=== PATIENT | female | born 1945 | race Caucasian/White ===

== ENCOUNTER 2017-01-12 07:00 | Inpatient (IN) | payer MEDICARE ==
[~2017-01-12] VITALS: Ht 165.1 cm; Wt 101.7 kg
[~2017-01-12 07:00] MED LIST: CALC500T42 PO; CO Q100C9 PO; GLUC250C5 PO; MELA1TAB PO; OMEG100037 PO; RED600TA PO; TAB-TAB PO; VITA200017 PO
[2017-01-30] MEDS ORDERED: ESTR42.5V VAGINAL (10:50)
[2017-01-30] MEDS ORDERED: FIBE625T PO (10:50)
[2017-01-30] MEDS ORDERED: LEVO50TA4 PO (10:50)
[2017-01-30] MEDS ORDERED: ESTR1TAB78 VAGINAL (10:50)
[2017-02-10 07:59] VITALS: BP 149/79; PULSE 57; RESP 20; TEMP 98.4; O2SAT 98
[2017-02-10] MEDS ORDERED: BUPIVACAINE LIPOSO PF 1.3% INJ 20 ML in SODIUM CHLORIDE 0.9% INJ 80 ML P-ARTICULR SCH (08:00)
[2017-02-10] MEDS ORDERED: CHLORHEXIDINE GLUCONATE 4% SOLN 120 ML BTL TOPICAL SCH (08:00)
[2017-02-10] MEDS ORDERED: SODIUM CHLORID 0.9% 500 ML IV PRN (08:00)
[2017-02-10] MEDS ORDERED: POVIDONE IODINE 5% (ANTISEPSIS KIT) 4 APPLICATIONS EACH NARE PRN (08:00)
[2017-02-10] MEDS ORDERED: INSULIN HUMAN REGULAR 1,000 UNITS/10 ML VIAL SQ PRN (08:00)
[2017-02-10] MEDS ORDERED: CHLORHEXIDINE GLUCONATE 2 % 1 PACK (2 CLOTHS) TOPICAL PRN (08:00)
[2017-02-10] MEDS ORDERED: METOPROLOL TARTRATE 25 MG TAB PO PRN (08:00)
[2017-02-10] MEDS ORDERED: SODIUM CHLORIDE 0.9% IV SCH ×2 (08:00→11:00)
[2017-02-10] MEDS ORDERED: TRANEXAMIC ACID IV SCH ×2 (08:00→11:00)
[2017-02-10] MEDS ORDERED: ceFAZolin 2 GM PREMIX 50 ML IV SCH (08:00)
[2017-02-10] MEDS ORDERED: LACTATED RINGER'S 1000 ML IV PRN (08:00)
[2017-02-10] MEDS ORDERED: GENTAMICIN SULFATE 80 MG/2 ML VIAL ONE (09:23)
[2017-02-10] MEDS ORDERED: MIDAZOLAM HCL 2 MG/2 ML VIAL ONE ×2 (10:08→11:22)
[2017-02-10] MEDS ORDERED: ACETAMINOPHEN 1000 MG/100 ML VIAL IV ONE (10:08)
[2017-02-10] MEDS ORDERED: fentaNYL CITRATE 250 MCG/5 ML AMP ONE (10:08)
[2017-02-10] MEDS ORDERED: DEXAMETHASONE SOD PHOS 4 MG/ML VIAL ONE (10:08)
[2017-02-10] MEDS ORDERED: FAMOTIDINE 20 MG/2 ML VIAL ONE (10:15)
[2017-02-10] MEDS ORDERED: MORPHINE SULFATE 4 MG/ML INJ IV PUSH PRN (10:45)
[2017-02-10] MEDS ORDERED: ZOLPIDEM TARTRATE 5 MG TAB PO PRN (10:45)
[2017-02-10] MEDS ORDERED: Post-op Orders (for Pharmacy) MISC XX ONE (10:45)
[2017-02-10] MEDS ORDERED: TRANEXAMIC ACID INJ 0 MG in SODIUM CHLORIDE 0.9% INJ 100 ML IV SCH (10:45)
[2017-02-10] MEDS ORDERED: ACETAMINOPHEN/HYDROcodone 325 MG/7.5 MG TAB PO PRN ×2 (10:45)
[2017-02-10] MEDS ORDERED: SODIUM CHLORIDE 0.9% FLUSH 5 ML FLUSH IVF PRN (10:45)
[2017-02-10] MEDS ORDERED: ePHEDrine/NS 25 MG/5 ML SYR IV ONE (12:00)
[2017-02-10] MEDS ORDERED: ONDANSETRON HCL 4 MG/2 ML VIAL IV PUSH ONE (12:00)
[2017-02-10] MEDS ORDERED: LACTATED RINGER'S 1000 ML INJ 1,000 ML IV ONE (12:00)
[2017-02-10] MEDS ORDERED: PROPOFOL 200 MG/20 ML AMP IV ONE (12:00)
--- NOTE | 2017-02-10 12:53 | PD.CONS ---
[facility] Requested By Ton Glover MD. Reason for Consult Medical Management. Primary Care Physician Christiano Garza Diagnoses: History of Present Illness This is a pleasant 71 y/o Female who has OA, Hyperlipidemia, Sleep disorder, Vitamin D Deficiency, rectal prolapse who was brought in for Right Total Hip arthroplasty. seen in PACU stable discussed with nurse Miss Lloyd no complaint, she has right knee Hemovac in place. no nausea, vomit or diarrhea no chest pain of shortness of breath. Past Family Social History Allergies: Coded Allergies: No Known Allergies (Unverified , 02/10/17) Past Medical History Hyperlipidemia. Hypothyroidism History of rectal prolapse status post rectopexy. Past Surgical History Rectopexy Left total knee replacement Tonsillectomy Reported Medications Reported Meds & Active Scripts Active Reported Levothyroxine (Levothyroxine Sodium) 50 Mcg Tab 50 Mcg PO DAILY Active Ordered Medications Current Medications Medications (Trade) Dose Ordered Sig/Eder Route Start Time Stop Time Status Last Admin (NS 500 ml Inj) 500 ml @ 30 mls/hr [id number] PRN IV 02/10/17 08:00 02/13/17 07:59 Chlorhexidine Gluconate 1 applic 1 applic ONCE TOPICAL 02/10/17 08:00 02/13/17 07:59 Tranexamic Acid 896 mg/Sodium Chloride 108.96 ml @ 200 mls/ hr ONCE IV 02/10/17 08:00 02/11/17 07:59 02/10/17 10:40 Tranexamic Acid 896 mg/Sodium Chloride 108.96 ml @ 200 mls/ hr ONCE IV 02/10/17 11:00 02/11/17 10:59 Bupivacaine Liposome 20 ml/ Sodium Chloride 100 ml @ 200 mls/hr ONCE P-ARTICULR 02/10/17 08:00 02/11/17 07:59 02/10/17 11:26 (Lr 1000 ml Inj) 1,000 ml @ 80 mls/hr [id number] IV 02/10/17 10:32 (NS Flush) 2 ml UNSCH PRN IVF 02/10/17 10:45 IV Flush 2 ml 2 ml BID IVF 02/10/17 21:00 (Ancef Inj/NS Inj) 100 ml @ 200 mls/hr Q6H IV 02/10/17 10:45 5/2/17 23:14 UNV 02/10/17 11:13 (Post-op Orders (for Pharmacy)) STAT ONCE XX 02/10/17 10:45 02/10/17 10:46 UNV (Morphine Inj) 4 mg Q3H PRN IV PUSH 02/10/17 10:45 ([place] 7.5-325 Mg) 1 tab Q4H PRN PO 02/10/17 10:45 ([place] 7.5-325 Mg) 2 tab Q4H PRN PO 02/10/17 10:45 (Toradol Inj) 15 mg Q6H IVP 02/10/17 10:45 02/12/17 04:46 UNV (Zofran Inj) 4 mg Q6H PRN IVP 02/10/17 10:45 (Colace) 100 mg BID PO 02/11/17 21:00 (Ambien) 5 mg HS PRN PO 02/10/17 10:45 (Milk Of Magnesia Liq) 30 ml DAILY PRN PO 02/10/17 10:45 (Ecotrin Ec) 81 mg BID PO 02/10/17 21:00 (Synthroid) 50 mcg DAILY@06 PO 02/11/17 06:00 Family History Mother with diabetes, resected lung cancer, and coronary artery disease Father and Brother with DM II. Social History Smoked less than 1 pack per day for 15 years, quitting in 1983. drinks rarely. Denies illicit drugs. Physical Exam Vital Signs Vital Signs Date Time Temp Pulse Resp B/P Pulse Ox O2 Delivery O2 Flow Rate FiO2 02/10/17 07:59 98.4 57 20 149/79 98 Physical Exam GENERAL: Obesity, well-developed patient. Alert and oriented 3. SKIN: Warm and dry. HEAD: Normocephalic. EYES: No scleral icterus. No injection or drainage. NECK: Supple, trachea midline. No JVD or lymphadenopathy. CARDIOVASCULAR: Regular rate and rhythm without murmurs, gallops, or rubs. RESPIRATORY: Breath sounds equal bilaterally. No accessory muscle use. GASTROINTESTINAL: Abdomen soft, non-tender, nondistended. MUSCULOSKELETAL: No cyanosis, or edema. Postoperative Right knee dressed. Distal perfusion intact. Sensation intact. Hemovac in place BACK: Nontender without obvious deformity. No CVA tenderness. Laboratory Laboratory Tests Test 02/10/17 07:55 Blood Type B POSITIVE Antibody Screen NEGATIVE Assessment and Plan Assessment and Plan 1. Severe OA status post Right total knee arthroplasty, Postsurgical management as per surgical team PT and manager energy for discharge. 2. Hyperlipidemia not taking medicines at this time, 3. Hypothyroidism to continue Hormonal replacement 4. obesity strongly recommended diet and exercise. Prophylaxis as per Surgical team. Code Status Full code Discussed Condition With Patient and nurse. Gallo Vidal MD February 10, 2017 12:53 07:55 Blood Type B POSITIVE Antibody Screen NEGATIVE Assessment and Plan Assessment and Plan 1. Severe OA status post Right total knee arthroplasty, Postsurgical management as per surgical team 2. Hyperlipidemia. 3. Hypothyroidism to continue Hormonal replacement Prophylaxis as per Surgical team. Gallo Vidal MD February 10, 2017 12:53
[2017-02-10] MEDS ORDERED: *morphine SULFATE 8 MG/ML PERIprocedure ONLY ONE ×2 (13:55→14:08)
[2017-02-10] MEDS: LACTATED RINGER'S 1000 ML INJ 1,000 ML IV SCH ×2 (13:58→23:02)
[2017-02-10] MEDS ORDERED: DO NOT ADM ANY ANTICOAGULANT DRUGS PRN (14:00)
[2017-02-10] MEDS: KETOROLAC TROMETHAMINE 30 MG/ML (IVP) VIAL IVP SCH ×2 (14:22→20:05)
--- NOTE | 2017-02-10 14:37 | RADRPT ---
EXAM DATE/TIME: 02/10/2017 13:45 [place] COMPARISON: No previous studies available for comparison. INDICATIONS : Post op right total knee. MEDICAL HISTORY : None. SURGICAL HISTORY : None. ENCOUNTER: Initial ACUITY: 1 day PAIN SCORE: Non-responsive. LOCATION: Right knee. FINDINGS: Right total knee arthroplasty is present. The hardware is intact. Alignment is anatomic. Surgical benson ins are present. CONCLUSION: Satisfactory appearance post right TKA Lázaro Butt MD on February 10, 2017 at 14:34 Board Certified Radiologist. This report was verified electronically.
[2017-02-10 15:15] VITALS: BP 120/67; PULSE 50; RESP 18; TEMP 96.8; O2SAT 97
[2017-02-10] MEDS: ONDANSETRON HCL 4 MG/2 ML VIAL IVP PRN ×2 (16:49→22:58)
--- NOTE | 2017-02-10 16:54 | MP ---
cc: Augustus SANCHEZ. DATE OF SURGERY 02/10/17 PREOPERATIVE DIAGNOSIS Primary osteoarthritis right knee POSTOPERATIVE DIAGNOSIS Primary osteoarthritis right knee OPERATION PERFORMED Right total knee arthroplasty with [place] Triathlon prosthesis (uncemented). SURGEON Buzz Sanchez MD, JOB COST ESTIMATOR Deja Cisneros, RICK ANESTHESIA Spinal with supplemental adductor canal block and local. INDICATIONS AND FINDINGS This 71-year-old woman has at least a 10-year history of right knee pain that has progressively worsened over time. She has had increasing pain with disability on activities of daily living. Ambulation tolerance is one to two blocks. She is able to swim, but has difficulty ascending and descending stairs. She has pain when standing from a seated position. She has not responded recently to analgesics, nonsteroidal anti-inflammatory agents, exercise programs, ambulatory aids and activity modification. Physical findings showed some severe crepitation in the patellofemoral joint with tenderness and some osteophytes. Radiographic findings show significant arthritis in the right knee, particularly in the patellofemoral joint, but also narrowing medially and laterally with significant sized osteophytes. Operative findings showed significant osteoarthritis, particularly in the patellofemoral joint, but also in the medial and lateral compartments. The prosthesis used was a [place] Triathlon prosthesis with the femur being a size five right cruciate-retaining uncemented, the tibia being a size five Tritanium baseplate with a 9 mm cruciate-retaining X3 polyethylene spacer. The patella was a 32 mm asymmetric tritanium backed patella. The range of motion at the conclusion of the procedure was 0 degrees extension to 135 degrees of flexion by gravity and 140 degrees with some pressure. This was blocked by soft tissues in the popliteal area. PROCEDURE IN DETAIL The patient was brought to the clean-air operating suite and a spinal anesthetic was administered. She then had an adductor canal block carried out. She was placed in a supine position on the operating table with a small bolster under the right hip. A pneumatic tourniquet was applied to the right thigh. The limb was then prepped with alcohol, Hibiclens and Chloraprep and draped in the usual manner with the knee draped free. Prophylactic antibiotics were given on the form of Ancef. Tranexamic acid was given to assist in hemostasis. After an appropriate time-out procedure, the incision site was anesthetized with Exparel. A longitudinal anterior incision was then made from three fingerbreadths above the superior medial pole of patella down to the tibial tubercle. The incision was deepened through the subcutaneous tissues to the retinacular structures which were exposed medially and laterally. A medial retinacular incision was made from the superomedial pole of patella down to the tibial tubercle and up into the quadriceps tendon splitting it longitudinally in the medial one-third. The patella was reflected. Medial and lateral dissection was carried out. The infrapatellar fat pad was debulked. The posterior surface of the patella was excised with the oscillating saw taking care to prevent injury to tendinous structures. A patellar protector was applied. A fenestration was made in the distal end of the femur and proximal end of the tibia for intermedullary referencing guides. The distal femoral cutting guide and jig was assembled for 5 degree 8-mm cut and stabilized with pins. The jig was removed. The distal femoral cut was completed with the oscillating saw. The sizing guide was then positioned in place and stabilized with pins. The size was determined to be size five. When this was removed, a 4:1 cutting block was positioned in place and stabilized with pins. Anterior and posterior cuts were made followed by posterior and anterior chamfer cuts. Osteophytes were trimmed. Attention was then directed to the tibia. The intramedullary referencing guide for the tibia was inserted and positioned appropriately for rotation. This was stabilized with a pin. The depth of the cut was verified with a stylus off lateral side. The cutting guide was stabilized with pins. The jig was removed. The depth of the cut was adjusted according to the spacer block. The proximal tibia was then exposed. The cut was made with the oscillating saw taking care to prevent injury to neurovascular and ligamentous structures. The tibial base plate trial was used to identify the size which was a size five. A 9 mm trial spacer was inserted into the tibial baseplate trial. These were inserted into the joint after local anesthesia had been administered in the popliteal area with Exparel. The femoral component was impacted into place and was also a size five. When this was seated appropriately, the tibial baseplate was stabilized with pins. The alignment was checked and was found to be excellent. The patella drill guide was positioned in place and patella drill holes made. A 32 mm trial patella was positioned in place. The knee was taken through a range of motion which was 0 degrees extension to 135 degrees by gravity and 140 degrees limited by the soft tissues with some pressure. The patella trial was removed. The femoral drill holes were made. The femoral trial was removed. The tibial spacer was removed. The tibial punch was impacted through the tibia after placement of bone plugs in the tibia and femur. The tibial baseplate trial was removed. The tip of drill guide was positioned and drill holes made. This was likewise removed. The cut ends of bone were cleaned with pulse lavage. The tibial baseplate which was a size five tritanium was impacted into place and seated appropriately. The 9-mm spacer was inserted and impacted in place. The femoral component was then impacted into place in the same manner after cleaning the bone with pulse lavage. The patella was impacted into place and seated with the patella vice. The knee was taken through a range of motion again which was comparable to that with the trial prosthesis. The remainder of the Exparel was injected throughout the knee. Drains were brought out the superolateral aspect of the suprapatellar pouch. Wound closure then commenced using 0 Vicryl interrupted [id number] sutures for the retinacular structures, 2-0 Vicryl interrupted simple sutures with buried knots for the subcutaneous tissues and 4-0 Monocryl continuous subcuticular closure for the skin. The wound was dressed with Steri-Strips followed by dry dressing, sterile Sof-Rol, cooling pad, further sterile Sof-Rol and Kamron bandage from the base of the toe to mid thigh. The patient was transferred from the operating room to the recovery room in satisfactory condition having tolerated the procedure well. Counts were correct. Specimens none. Estimated blood loss 200 mm. MD HOLLIE Virk/ /1:20 PM /4:34 PM
[2017-02-10 18:11] VITALS: O2SAT 97
[2017-02-10] MEDS: SODIUM CHLORIDE 0.9% FLUSH 5 ML FLUSH IVF SCH (20:06)
[2017-02-10 20:30] VITALS: BP 128/59; PULSE 65; RESP 17; TEMP 96.9; O2SAT 97
[2017-02-10] MEDS ORDERED: ASPIRIN EC 81 MG TABEC PO SCH (21:00)
[2017-02-10] MEDS ORDERED: oxyCODONE/ACETAMINOPHEN 7.5 MG/325 MG TAB PO PRN (21:15)
[2017-02-10] MEDS: oxyCODONE/ACETAMINOPHEN 7.5 MG/325 MG TAB PO PRN (22:58)
[2017-02-11] VITALS (10 sets, daily range): BP systolic 84–124; BP diastolic 48–56; PULSE 54–66; RESP 16–18; TEMP 96.3–98.2; O2SAT 95–97
[2017-02-11] MEDS: KETOROLAC TROMETHAMINE 30 MG/ML (IVP) VIAL IVP SCH ×4 (03:55→20:08)
[2017-02-11] MEDS: LACTATED RINGER'S 1000 ML INJ 1,000 ML IV SCH (03:56)
[2017-02-11] MEDS: oxyCODONE/ACETAMINOPHEN 7.5 MG/325 MG TAB PO PRN ×4 (03:56→17:56)
[2017-02-11] MEDS: ONDANSETRON HCL 4 MG/2 ML VIAL IVP PRN (04:59)
[2017-02-11] MEDS: LEVOTHYROXINE SODIUM 50 MCG TAB PO SCH (04:59)
[2017-02-11 07:09] LABS: HEMATOCRIT 32.4 % (35.0-46.0); REVIEW FLAG FINAL
--- NOTE | 2017-02-11 07:31 | PD.ORT.PN ---
Subjective Post Op Day #: 1 Subjective Remarks She is doing well. She had nausea from morphine. She did well with walking. Range of Motion -15 to 90 degrees. Distance Walked 20 feet. Objective Vitals Vital Signs Date Time Temp Pulse Resp B/P Pulse Ox O2 Delivery O2 Flow Rate FiO2 02/11/17 04:30 96.3 61 17 96/54 96 02/11/17 00:30 97.0 60 17 106/55 96 02/10/17 20:30 96.9 65 17 128/59 97 02/10/17 18:11 97 Nasal Cannula 2.00 02/10/17 15:15 96.8 50 18 120/67 97 02/10/17 14:45 97.7 56 16 139/69 98 Nasal Cannula 2 02/10/17 14:30 48 20 146/68 96 Nasal Cannula 2 02/10/17 14:15 54 20 130/62 98 Nasal Cannula 2 02/10/17 14:00 52 16 138/65 96 Nasal Cannula 2 02/10/17 13:45 67 16 132/65 98 Nasal Cannula 2 02/10/17 13:41 97.7 70 16 129/72 93 Nasal Cannula 3 02/10/17 07:59 98.4 57 20 149/79 98 I/O 02/10/17 02/10/17 02/10/17 02/11/17 02/11/17 02/11/17 07:00 15:00 23:00 07:00 15:00 23:00 Intake Total 1574 ml 240 ml 120 ml Output Total 310 ml 170 ml 130 ml Balance 1264 ml 70 ml -10 ml Intake Oral 50 ml 240 ml 120 ml IV Total 224 ml Other 1300 ml Output Urine Total 0 ml Drainage Total 60 ml 170 ml 130 ml Estimated Blood Loss 250 ml # Voids 0 2 2 # Bowel Movements 0 0 Result Diagram: 02/11/17 0635 Imaging Knee x-ray looks good. Last 24 hours Impressions Knee X-Ray 02/10/17 1032 Signed Impressions: Service Date/Time: Friday, February 10, 2017 13:45 - CONCLUSION: Satisfactory appearance post right TKA Lázaro Butt MD Objective Remarks She is resting comfortably, supine in bed in the [facility]. The neurovascular status is intact. The dressing is dry and intact. Assessment & Plan Ortho Post Op Day #: 1 Problem List: (1) Status post total right knee replacement Plan: Continue postop care and PT. Assessment and Plan Condition: Good. Orthopaedically stable. DVT prophylaxis: TEDs, sequentials, ASA. Discharge plans: SNF for rehab. Has appointment. Shona Camilo MD (Charles) February 11, 2017 07:30
[2017-02-11 07:39] LABS: BICARBONATE 29.8 MEQ/L (21.0-32.0); MAGNESIUM 1.7 MG/DL (1.5-2.5); POTASSIUM 4.6 MEQ/L (3.5-5.1)
--- NOTE | 2017-02-11 08:17 | HHI.FF ---
Face to Face Verification Diagnosis: (1) Status post total right knee replacement Physical Therapy Gait training Knee: Total knee, Protocol: Right, Gait training, Full weight bearing Right LE Weight Bearing: WB as tolerated Right LE Range of Motion: Active ROM (AROM, AAROM, PROM, PRE. ROM goal is 0 to 130 degrees. The ROM in the OR was 0 to 140 degrees.) Nursing Nursing: Dressing changes Dressing Changes: Daily dressing change, Coverderm/Primapore Additional Instructions Remove steristrips on postop day 14. I have seen patient Rose Marie Bryant on 02/11/17. My clinical findings support the need for the requested home health care services because: Ltd mobility - disease progression Limited ability to care for self High risk of falls I certify that my clinical findings support that this patient is homebound because: Post-op weakness Unsteady gait/balance Unsafe to leave home unassisted Shona Camilo MD (Charles) February 11, 2017 08:17
[2017-02-11] MEDS ORDERED: ASPI81TA11 PO (08:35)
[2017-02-11] MEDS ORDERED: OXYC1TAB35 PO (08:35)
[2017-02-11] MEDS: SODIUM CHLORIDE 0.9% FLUSH 5 ML FLUSH IVF SCH ×2 (09:00→20:08)
[2017-02-11] MEDS: ASPIRIN EC 81 MG TABEC PO SCH ×2 (13:05→20:08)
--- NOTE | 2017-02-11 16:31 | HHI.PR ---
Subjective Remarks This is a pleasant 71 y/o Female who has OA, Hyperlipidemia, Sleep disorder, Vitamin D Deficiency, rectal prolapse who was brought in for Right Total Hip arthroplasty. seen in PACU stable discussed with nurse Miss Lloyd no complaint, she has right knee Hemovac in place. no nausea, vomit or diarrhea no chest pain of shortness of breath. 02/11: Seen in her bedroom, reviewed her laboratory for today, vital sings stable , was given IV fluids by Orthopedic surgery will switch to Normal Saline, she was nauseated yesterday night probable related to Morphine, today improved on by mouth pain medicine. already working with physical therapy. Objective Vital Signs Date Time Temp Pulse Resp B/P Pulse Ox O2 Delivery O2 Flow Rate FiO2 02/11/17 12:00 98.1 66 18 109/50 97 02/11/17 11:07 96 21 02/11/17 10:44 16 02/11/17 09:41 104/53 02/11/17 09:20 95/52 02/11/17 08:55 85/48 02/11/17 08:00 96.6 54 18 84/50 96 02/11/17 04:30 96.3 61 17 96/54 96 02/11/17 00:30 97.0 60 17 106/55 96 02/10/17 20:30 96.9 65 17 128/59 97 02/10/17 18:11 97 Nasal Cannula 2.00 I/O 02/10/17 02/10/17 02/10/17 02/11/17 02/11/17 02/11/17 07:00 15:00 23:00 07:00 15:00 23:00 Intake Total 1574 ml 240 ml 120 ml Output Total 310 ml 170 ml 130 ml Balance 1264 ml 70 ml -10 ml Intake Oral 50 ml 240 ml 120 ml IV Total 224 ml Other 1300 ml Output Urine Total 0 ml Drainage Total 60 ml 170 ml 130 ml Estimated Blood Loss 250 ml # Voids 0 2 2 # Bowel Movements 0 0 Result Diagram: 02/11/17 0635 02/11/17 0635 Imaging Last Impressions Knee X-Ray 02/10/17 1032 Signed Impressions: Service Date/Time: Friday, February 10, 2017 13:45 - CONCLUSION: Satisfactory appearance post right TKA Lázaro Butt MD Procedures Right Total knee arthroplasty Other Results Laboratory Tests Test 02/10/17 02/11/17 07:55 06:35 Blood Type B POSITIVE Antibody Screen NEGATIVE Hemoglobin 10.7 GM/DL Hematocrit 32.4 % Sodium Level 138 MEQ/L Potassium Level 4.6 MEQ/L Chloride Level 104 MEQ/L Carbon Dioxide Level 29.8 MEQ/L Anion Gap 4 MEQ/L Blood Urea Nitrogen 17 MG/DL Creatinine 0.74 MG/DL Estimat Glomerular Filtration 78 ML/MIN Rate Random Glucose 120 MG/DL Calcium Level 9.2 MG/DL Phosphorus Level 2.9 MG/DL Magnesium Level 1.7 MG/DL Objective Remarks GENERAL: Obesity, well-developed patient. Alert and oriented 3. SKIN: Warm and dry. HEAD: Normocephalic. EYES: No scleral icterus. No injection or drainage. NECK: Supple, trachea midline. No JVD or lymphadenopathy. CARDIOVASCULAR: Regular rate and rhythm without murmurs, gallops, or rubs. RESPIRATORY: Breath sounds equal bilaterally. No accessory muscle use. GASTROINTESTINAL: Abdomen soft, non-tender, nondistended. MUSCULOSKELETAL: No cyanosis, or edema. Postoperative Right knee dressed. Distal perfusion intact. Sensation intact. Hemovac in place BACK: Nontender without obvious deformity. No CVA tenderness. Medications and IVs Current Medications Medications (Trade) Dose Ordered Sig/Eder Route Start Time Stop Time Status Last Admin Chlorhexidine Gluconate 1 applic 1 applic ONCE TOPICAL 02/10/17 08:00 02/13/17 07:59 (Lr 1000 ml Inj) 1,000 ml @ 80 mls/hr [id number] IV 02/10/17 10:32 02/11/17 03:56 (NS Flush) 2 ml UNSCH PRN IVF 02/10/17 10:45 (NS Flush) 2 ml BID IVF 02/10/17 21:00 (Morphine Inj) 4 mg Q3H PRN IV PUSH 02/10/17 10:45 (Toradol Inj) 15 mg Q6H IVP 02/10/17 14:00 02/12/17 08:01 02/11/17 13:41 (Zofran Inj) 4 mg Q6H PRN IVP 02/10/17 10:45 02/11/17 04:59 (Colace) 100 mg BID PO 02/11/17 21:00 (Ambien) 5 mg HS PRN PO 02/10/17 10:45 (Milk Of Magnesia Liq) 30 ml DAILY PRN PO 02/10/17 10:45 (Synthroid) 50 mcg DAILY@06 PO 02/11/17 06:00 02/11/17 04:59 (Percocet 7.5-325 Mg) 1 tab Q4H PRN PO 02/10/17 21:15 02/11/17 13:41 (Percocet 7.5-325 Mg) 2 tab Q4H PRN PO 02/10/17 21:15 (Ecotrin Ec) 81 mg BID PO 02/11/17 13:00 02/11/17 13:05 A/P Assessment and Plan 1. Severe OA status post Right total knee arthroplasty, Postsurgical management as per surgical team PT and radio station manager for discharge. 2. Hyperlipidemia not taking medicines at this time, 3. Hypothyroidism to continue Hormonal replacement 4. obesity strongly recommended diet and exercise. Prophylaxis as per Surgical team. Code Status Full code Discussed Condition With patient and nurse Miss Rizvi. Gallo Vidal MD February 11, 2017 16:31
[2017-02-11] MEDS: SODIUM CHLOR 0.9% 1000 ML INJ 1,000 ML IV SCH (17:52)
[2017-02-11] MEDS: DOCUSATE SODIUM 100 MG CAP PO SCH (20:08)
[2017-02-11] MEDS: MAGNESIUM HYDROXIDE SUSP 30 ML CUP PO PRN (20:10)
[2017-02-12 00:31] VITALS: BP 120/58; PULSE 57; RESP 17; TEMP 97.2; O2SAT 95
[2017-02-12] MEDS: KETOROLAC TROMETHAMINE 30 MG/ML (IVP) VIAL IVP SCH ×2 (02:00→08:00)
[2017-02-12] MEDS: LEVOTHYROXINE SODIUM 50 MCG TAB PO SCH (04:06)
[2017-02-12] MEDS: ONDANSETRON HCL 4 MG/2 ML VIAL IVP PRN (04:06)
[2017-02-12] MEDS: oxyCODONE/ACETAMINOPHEN 7.5 MG/325 MG TAB PO PRN ×4 (04:07→18:00)
[2017-02-12] MEDS: SODIUM CHLOR 0.9% 1000 ML INJ 1,000 ML IV SCH ×2 (04:19→16:50)
[2017-02-12 06:47] LABS: HEMATOCRIT 27.6 % (35.0-46.0); REVIEW FLAG FINAL
--- NOTE | 2017-02-12 06:50 | PD.ORT.PN ---
Subjective Post Op Day #: 2 Subjective Remarks She is doing well. She had nausea last night. She did well with walking and PT. Range of Motion 0 to 92 degrees. Distance Walked 150 feet with nurses. 20 feet to bathroom, then 55 feet with PT, limited by fatigue. Objective Vitals Vital Signs Date Time Temp Pulse Resp B/P Pulse Ox O2 Delivery O2 Flow Rate FiO2 02/12/17 00:31 97.2 57 17 120/58 95 02/11/17 20:10 97.1 60 16 124/56 96 02/11/17 16:00 98.2 60 18 105/49 95 02/11/17 12:00 98.1 66 18 109/50 97 02/11/17 11:07 96 21 02/11/17 10:44 16 02/11/17 09:41 104/53 02/11/17 09:20 95/52 02/11/17 08:55 85/48 02/11/17 08:00 96.6 54 18 84/50 96 I/O 02/11/17 02/11/17 02/11/17 02/12/17 02/12/17 02/12/17 07:00 15:00 23:00 07:00 15:00 23:00 Intake Total 120 ml 840 ml 480 ml Output Total 130 ml 110 ml 100 ml 50 ml Balance -10 ml -110 ml 740 ml 430 ml Intake Oral 120 ml 840 ml 480 ml Drainage Total 130 ml 110 ml 100 ml 50 ml # Voids 2 4 3 # Bowel Movements 0 0 0 Result Diagram: 02/11/17 0635 02/11/17 0635 Imaging Knee x-ray looks good. Last 24 hours Impressions Knee X-Ray 02/10/17 1032 Signed Impressions: Service Date/Time: Friday, February 10, 2017 13:45 - CONCLUSION: Satisfactory appearance post right TKA Lázaro Butt MD Objective Remarks She is resting comfortably, supine in bed in the [facility]. The neurovascular status is intact. The original dressing is dry and intact. Assessment & Plan Ortho Post Op Day #: 2 Problem List: (1) Status post total right knee replacement Plan: Continue postop care and PT. Assessment and Plan Condition: Good. Orthopaedically stable. DVT prophylaxis: TEDs, sequentials, ASA. Discharge plans: SNF for rehab. Has appointment. Rx: Percocet 5/325. Shona Camilo MD (Charles) February 12, 2017 06:50
[2017-02-12 08:00] VITALS: BP 110/50; PULSE 56; RESP 18; TEMP 96.5; O2SAT 96
--- NOTE | 2017-02-12 08:19 | HHI.PR ---
Subjective Remarks This is a pleasant 71 y/o Female who has OA, Hyperlipidemia, Sleep disorder, Vitamin D Deficiency, rectal prolapse who was brought in for Right Total Hip arthroplasty. seen in PACU stable discussed with nurse Miss Lloyd no complaint, she has right knee Hemovac in place. no nausea, vomit or diarrhea no chest pain of shortness of breath. 02/12: Seen in her bedroom had some nausea, and vomit, had Breakfast and no nausea at this time, no diarrhea, will be discharged in am tomorrow if continue improving. Objective Vital Signs Date Time Temp Pulse Resp B/P Pulse Ox O2 Delivery O2 Flow Rate FiO2 02/12/17 00:31 97.2 57 17 120/58 95 02/11/17 20:10 97.1 60 16 124/56 96 02/11/17 16:00 98.2 60 18 105/49 95 02/11/17 12:00 98.1 66 18 109/50 97 02/11/17 11:07 96 21 02/11/17 10:44 16 02/11/17 09:41 104/53 02/11/17 09:20 95/52 02/11/17 08:55 85/48 I/O 02/11/17 02/11/17 02/11/17 02/12/17 02/12/17 02/12/17 07:00 15:00 23:00 07:00 15:00 23:00 Intake Total 120 ml 840 ml 480 ml Output Total 130 ml 110 ml 100 ml 50 ml Balance -10 ml -110 ml 740 ml 430 ml Intake Oral 120 ml 840 ml 480 ml Drainage Total 130 ml 110 ml 100 ml 50 ml # Voids 2 4 3 # Bowel Movements 0 0 0 Result Diagram: 02/12/17 0542 02/11/17 0635 Imaging Last Impressions Knee X-Ray 02/10/17 1032 Signed Impressions: Service Date/Time: Friday, February 10, 2017 13:45 - CONCLUSION: Satisfactory appearance post right TKA Lázaro Butt MD Procedures Right Total knee arthroplasty Other Results Laboratory Tests Test 02/10/17 02/11/17 02/12/17 07:55 06:35 05:42 Blood Type B POSITIVE Antibody Screen NEGATIVE Sodium Level 138 MEQ/L Potassium Level 4.6 MEQ/L Chloride Level 104 MEQ/L Carbon Dioxide Level 29.8 MEQ/L Anion Gap 4 MEQ/L Blood Urea Nitrogen 17 MG/DL Creatinine 0.74 MG/DL Estimat Glomerular Filtration 78 ML/MIN Rate Random Glucose 120 MG/DL Calcium Level 9.2 MG/DL Phosphorus Level 2.9 MG/DL Magnesium Level 1.7 MG/DL Hemoglobin 9.2 GM/DL Hematocrit 27.6 % Objective Remarks GENERAL: Obesity, well-developed patient. Alert and oriented 3. SKIN: Warm and dry. HEAD: Normocephalic. EYES: No scleral icterus. No injection or drainage. NECK: Supple, trachea midline. No JVD or lymphadenopathy. CARDIOVASCULAR: Regular rate and rhythm without murmurs, gallops, or rubs. RESPIRATORY: Breath sounds equal bilaterally. No accessory muscle use. GASTROINTESTINAL: Abdomen soft, non-tender, nondistended. MUSCULOSKELETAL: No cyanosis, or edema. Postoperative Right knee dressed. Distal perfusion intact. Sensation intact. Hemovac in place BACK: Nontender without obvious deformity. No CVA tenderness. Medications and IVs Current Medications Medications (Trade) Dose Ordered Sig/Eder Route Start Time Stop Time Status Last Admin (Hibiclens 4% Top Soln) 1 applic ONCE TOPICAL 02/10/17 08:00 02/13/17 07:59 (NS Flush) 2 ml UNSCH PRN IVF 02/10/17 10:45 (NS Flush) 2 ml BID IVF 02/10/17 21:00 02/11/17 20:08 (Morphine Inj) 4 mg Q3H PRN IV PUSH 02/10/17 10:45 (Zofran Inj) 4 mg Q6H PRN IVP 02/10/17 10:45 02/12/17 04:06 (Colace) 100 mg BID PO 02/11/17 21:00 02/11/17 20:08 (Ambien) 5 mg HS PRN PO 02/10/17 10:45 (Milk Of Magnesia Liq) 30 ml DAILY PRN PO 02/10/17 10:45 02/11/17 20:10 (Synthroid) 50 mcg DAILY@06 PO 02/11/17 06:00 02/12/17 04:06 (Percocet 7.5-325 Mg) 1 tab Q4H PRN PO 02/10/17 21:15 02/12/17 04:07 (Percocet 7.5-325 Mg) 2 tab Q4H PRN PO 02/10/17 21:15 Aspirin 81 mg 81 mg BID PO 02/11/17 13:00 02/11/17 20:08 (NS 1000 ml Inj) 1,000 ml @ 84 mls/hr [id number] IV 02/11/17 17:00 02/11/17 17:52 A/P Assessment and Plan 1. 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 still Hemovac in place. 2. Hyperlipidemia not taking medicines at this time, 3. Hypothyroidism to continue Hormonal replacement 4. obesity strongly recommended diet and exercise. DVT Prophylaxis as per Surgical team. Code Status Full code Discussed Condition With Patient. Discharge Planning Okay to Discharge from medicine standpoint. Gallo Vidal MD February 12, 2017 08:19 Gallo Vidal MD February 12, 2017 08:19
[2017-02-12] MEDS: SODIUM CHLORIDE 0.9% FLUSH 5 ML FLUSH IVF SCH ×2 (09:00→21:00)
[2017-02-12] MEDS: DOCUSATE SODIUM 100 MG CAP PO SCH ×2 (09:15→21:13)
[2017-02-12] MEDS: ASPIRIN EC 81 MG TABEC PO SCH ×2 (09:16→21:13)
[2017-02-12 12:00] VITALS: BP 110/51; PULSE 58; RESP 18; TEMP 97.8; O2SAT 95
[2017-02-12] MEDS ORDERED: PANTOPRAZOLE SODIUM 40 MG VIAL IV PUSH SCH (12:00)
[2017-02-12] MEDS: PANTOPRAZOLE SOD 40 MG DELAYED RELEASE TAB PO SCH (13:56)
[2017-02-12 16:00] VITALS: BP 133/65; PULSE 60; RESP 18; TEMP 97.4; O2SAT 99
[2017-02-12] MEDS: SUCRALFATE 1 GM TAB PO SCH ×2 (18:00→21:13)
[2017-02-12 20:10] VITALS: BP 123/56; PULSE 53; RESP 17; TEMP 97.5; O2SAT 97
[2017-02-12] MEDS: MAGNESIUM HYDROXIDE SUSP 30 ML CUP PO PRN (21:12)
[2017-02-13 00:10] VITALS: BP 159/68; PULSE 60; RESP 17; TEMP 97.6; O2SAT 96
[2017-02-13] MEDS ORDERED: ONDANSETRON ODT 4 MG TAB PO ONE (03:00)
[2017-02-13] MEDS: oxyCODONE/ACETAMINOPHEN 7.5 MG/325 MG TAB PO PRN ×2 (03:23→11:15)
[2017-02-13 04:10] VITALS: BP 112/56; PULSE 62; RESP 17; TEMP 97.9; O2SAT 96
[2017-02-13] MEDS: SODIUM CHLOR 0.9% 1000 ML INJ 1,000 ML IV SCH (04:45)
[2017-02-13] MEDS: LEVOTHYROXINE SODIUM 50 MCG TAB PO SCH (06:22)
[2017-02-13] MEDS: SUCRALFATE 1 GM TAB PO SCH ×2 (06:22→11:15)
--- NOTE | 2017-02-13 07:35 | PD.ORT.PN ---
Subjective Post Op Day #: 3 Subjective Remarks She is doing well, with some pain. She had nausea again last night. She did fairly well with walking and PT. Range of Motion -10 to 83 degrees. Distance Walked 10 feet, then 20 feet. Objective Vitals Vital Signs Date Time Temp Pulse Resp B/P Pulse Ox O2 Delivery O2 Flow Rate FiO2 02/13/17 04:10 97.9 62 17 112/56 96 02/13/17 00:10 97.6 60 17 159/68 96 02/12/17 20:10 97.5 53 17 123/56 97 02/12/17 19:00 16 02/12/17 16:00 97.4 60 18 133/65 99 02/12/17 12:00 97.8 58 18 110/51 95 02/12/17 08:00 96.5 56 18 110/50 96 I/O 02/12/17 02/12/17 02/12/17 02/13/17 02/13/17 02/13/17 07:00 15:00 23:00 07:00 15:00 23:00 Intake Total 480 ml 960 ml 240 ml Output Total 50 ml 20 ml Balance 430 ml -20 ml 960 ml 240 ml Intake Oral 480 ml 960 ml 240 ml Drainage Total 50 ml 20 ml # Voids 3 5 3 # Bowel Movements 0 0 0 Result Diagram: 02/12/17 0542 02/11/17 0635 Imaging Knee x-ray looks good. Last 24 hours Impressions Knee X-Ray 02/10/17 1032 Signed Impressions: Service Date/Time: Friday, February 10, 2017 13:45 - CONCLUSION: Satisfactory appearance post right TKA Lázaro Butt MD Objective Remarks She is resting comfortably, supine in bed in the CPM. The neurovascular status is intact. The dressing is dry and intact. Assessment & Plan Ortho Post Op Day #: 3 Problem List: (1) Status post total right knee replacement Plan: Continue postop care and PT. Assessment and Plan Condition: Good. Orthopaedically stable. DVT prophylaxis: TEDs, sequentials, ASA. Discharge plans: SNF for rehab. Has appointment. Rx: Percocet . Sohna Camilo MD (Charles) February 13, 2017 07:35
[2017-02-13] MEDS ORDERED: ZOFR4TAB3 SL (07:45)
[2017-02-13] MEDS: DOCUSATE SODIUM 100 MG CAP PO SCH (07:57)
[2017-02-13] MEDS: PANTOPRAZOLE SOD 40 MG DELAYED RELEASE TAB PO SCH (07:57)
[2017-02-13 07:58] LABS: BICARBONATE 31.1 MEQ/L (21.0-32.0); MAGNESIUM 2.2 MG/DL (1.5-2.5); POTASSIUM 4.2 MEQ/L (3.5-5.1)
[2017-02-13] MEDS: ASPIRIN EC 81 MG TABEC PO SCH (07:58)
[2017-02-13 08:00] VITALS: BP 143/65; PULSE 62; RESP 18; TEMP 97.4; O2SAT 96
--- NOTE | 2017-02-13 08:54 | HHI.PR ---
Subjective Remarks This is a pleasant 71 y/o Female who has OA, Hyperlipidemia, Sleep disorder, Vitamin D Deficiency, rectal prolapse who was brought in for Right Total Hip arthroplasty. seen in PACU. 02/13: Patient in her bedroom no new issues, already recommended by Orthopedic surgery to discharge Home, no nausea, vomit or diarrhea, okay to discharge home. Objective Vital Signs Date Time Temp Pulse Resp B/P Pulse Ox O2 Delivery O2 Flow Rate FiO2 02/13/17 04:10 97.9 62 17 112/56 96 02/13/17 00:10 97.6 60 17 159/68 96 02/12/17 20:10 97.5 53 17 123/56 97 02/12/17 19:00 16 02/12/17 16:00 97.4 60 18 133/65 99 02/12/17 12:00 97.8 58 18 110/51 95 I/O 02/12/17 02/12/17 02/12/17 02/13/17 02/13/17 02/13/17 07:00 15:00 23:00 07:00 15:00 23:00 Intake Total 480 ml 960 ml 240 ml Output Total 50 ml 20 ml 50 ml Balance 430 ml -20 ml 960 ml 190 ml Intake Oral 480 ml 960 ml 240 ml Gastric Drainage Total 50 ml Drainage Total 50 ml 20 ml # Voids 3 5 3 # Bowel Movements 0 0 0 Result Diagram: 02/12/17 0542 02/13/17 0644 Imaging Last Impressions Knee X-Ray 02/10/17 1032 Signed Impressions: Service Date/Time: Friday, February 10, 2017 13:45 - CONCLUSION: Satisfactory appearance post right TKA Lázaro Butt MD Procedures Right Total knee arthroplasty Other Results Laboratory Tests Test 02/10/17 02/11/17 02/12/17 02/13/17 07:55 06:35 05:42 06:44 Blood Type B POSITIVE Antibody Screen NEGATIVE Phosphorus Level 2.9 MG/DL Hemoglobin 9.2 GM/DL Hematocrit 27.6 % Sodium Level 141 MEQ/L Potassium Level 4.2 MEQ/L Chloride Level 105 MEQ/L Carbon Dioxide Level 31.1 MEQ/L Anion Gap 5 MEQ/L Blood Urea Nitrogen 9 MG/DL Creatinine 0.54 MG/DL Estimat Glomerular Filtration 112 ML/MIN Rate Random Glucose 119 MG/DL Calcium Level 9.4 MG/DL Magnesium Level 2.2 MG/DL Objective Remarks GENERAL: Obesity, well-developed patient. Alert and oriented 3. SKIN: Warm and dry. HEAD: Normocephalic. EYES: No scleral icterus. No injection or drainage. NECK: Supple, trachea midline. No JVD or lymphadenopathy. CARDIOVASCULAR: Regular rate and rhythm without murmurs, gallops, or rubs. RESPIRATORY: Breath sounds equal bilaterally. No accessory muscle use. GASTROINTESTINAL: Abdomen soft, non-tender, nondistended. MUSCULOSKELETAL: No cyanosis, or edema. Postoperative Right knee dressed. Distal perfusion intact. Sensation intact. Hemovac in place BACK: Nontender without obvious deformity. No CVA tenderness. Medications and IVs Current Medications Medications (Trade) Dose Ordered Sig/Eder Route Start Time Stop Time Status Last Admin (NS Flush) 2 ml UNSCH PRN IVF 02/10/17 10:45 (NS Flush) 2 ml BID IVF 02/10/17 21:00 02/11/17 20:08 (Morphine Inj) 4 mg Q3H PRN IV PUSH 02/10/17 10:45 (Zofran Inj) 4 mg Q6H PRN IVP 02/10/17 10:45 02/12/17 04:06 (Colace) 100 mg BID PO 02/11/17 21:00 02/13/17 07:57 (Ambien) 5 mg HS PRN PO 02/10/17 10:45 (Milk Of Magnesia Liq) 30 ml DAILY PRN PO 02/10/17 10:45 02/12/17 21:12 (Synthroid) 50 mcg DAILY@06 PO 02/11/17 06:00 02/13/17 06:22 (Percocet 7.5-325 Mg) 1 tab Q4H PRN PO 02/10/17 21:15 02/13/17 03:23 (Percocet 7.5-325 Mg) 2 tab Q4H PRN PO 02/10/17 21:15 Aspirin 81 mg 81 mg BID PO 02/11/17 13:00 02/13/17 07:58 (NS 1000 ml Inj) 1,000 ml @ 84 mls/hr [id number] IV 02/11/17 17:00 02/11/17 17:52 (Protonix) 40 mg DAILY PO 02/12/17 14:00 02/13/17 07:57 (Carafate) 1 gm ACHS PO 02/12/17 16:00 02/13/17 06:22 A/P Assessment and Plan 1. 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 Hemovac removed yesterday, okay to discharge home. 2. Hyperlipidemia not taking medicines at this time, 3. Hypothyroidism to continue Hormonal replacement 4. obesity strongly recommended diet and exercise. DVT Prophylaxis as per Surgical team. Code Status Full code Discussed Condition With Patient. Discharge Planning Okay to Discharge from medicine standpoint. Gallo Vidal MD February 13, 2017 08:54 Gallo Vidal MD February 13, 2017 08:54
[2017-02-13] MEDS: MAGNESIUM HYDROXIDE SUSP 30 ML CUP PO PRN (09:40)
[2017-02-13 12:00] VITALS: BP 130/66; PULSE 56; RESP 18; TEMP 97.5; O2SAT 94
--- NOTE | 2017-03-22 09:00 | MD ---
cc: Augustus SANCHEZ. ADMISSION DATE: 02/10/2017 DISCHARGE DATE: 02/13/2017 ADMISSION DIAGNOSIS Primary osteoarthritis, right knee FINAL DIAGNOSIS Primary osteoarthritis, right knee OPERATION Right total knee arthroplasty with [employer] prosthesis, 02/10/2017 PRESENT ILLNESS This 71-year-old woman has a ten year history of right knee pain that has progressively worsened over time. This limits her activities. Her ambulation tolerance is one to two blocks. She is able to swim but has difficulty entering and exiting the pool and has difficulty ascending and descending stairs. She has difficulty standing from a seated position. Treatment has included analgesics, nonsteroidal anti-inflammatory agents, exercise programs, ambulatory aids and activity modification without any benefit and with progressive worsening. Physical findings showed severe crepitation on range of motion of the knee with patellofemoral joint tenderness and osteophytes. Radiographic findings showed severe osteoarthritis particularly in the patellofemoral joint with medial and lateral narrowing and significant osteophytes. HOSPITAL COURSE The patient was admitted on 02/10/2017. She had the above-noted operative procedure carried out. Preoperatively and postoperatively she had prophylactic antibiotics according to protocol. She tolerated the procedure well. On the first postoperative day she was having difficulty with nausea. She was able to walk 20 feet. Her range of motion was minus 15-90 degrees. She remained afebrile. Hemoglobin was 10.7, hematocrit 32.4. Arrangements were made for continued postoperative care. She indicated that she was going to go to a [facility] facility for rehabilitation because of inability to have assistance at home. By the second postoperative day she was walking 150 feet with the nurses. She was able to walk after this 20 feet to the bathroom and 55 feet with physical therapy but limited by fatigue. Range of motion was zero to 92 degrees. She remained afebrile. Hemoglobin was 10.7, hematocrit 32.4. She continued to make progress. By the third postoperative day she had some increased pain but was walking 10 feet and then 20 feet. Range of motion was minus 10 to 83 degrees. She remained afebrile. Hemoglobin was now to 9.2, hematocrit 27.6. She was discharged to the [facility] facility for rehabilitation. DVT prophylaxis is to continue with JERICHO stockings and aspirin 81 mg as this was started in the hospital. She is given Percocet for pain. She has a follow-up appointment with the undersigned. MD HOLLIE Virk/CONNER /6:21 PM /4:49 AM
== END 2017-02-13 13:11 | DRG 470 ==
LOC: HSDI 02-10 07:10 → N06B 02-10 15:18
PROVIDERS: ADMIT Orthopaedic Surgery; ATTEND Orthopaedic Surgery
PROC: 3E0T3CZ (ICD-10-PCS; 2017-02-10)
PROC: 0SRC0JA Replacement of Right Knee Joint with Synthetic Substitute, Uncemented, Open Approach (ICD-10-PCS; principal; 2017-02-10 10:37)
DX: M17.11 Unilateral primary osteoarthritis, right knee (principal); E55.9 Vitamin D deficiency, unspecified; E78.5 Hyperlipidemia, unspecified; M25.761 Osteophyte, right knee; Z96.641 Presence of right artificial hip joint; G47.9 Sleep disorder, unspecified; Z96.652 Presence of left artificial knee joint; Z83.3 Family history of diabetes mellitus; Z80.1 Family history of malignant neoplasm of trachea, bronchus and lung; Z82.49 Family history of ischemic heart disease and other diseases of the circulatory system; E03.9 Hypothyroidism, unspecified; E66.9 Obesity, unspecified; R11.0 Nausea; T40.2X5A Adverse effect of other opioids, initial encounter; Y92.239 Unspecified place in hospital as the place of occurrence of the external cause
CPT/HCPCS: 73560; 80048; 83735; 84100; 85014; 85018; 86850; 86900; 86901; 94150; C1776; C9290; J0131; J0690; J1100; J1580; J1885; J2250; J2270; J2405; J3010; J7030; J7120

== ENCOUNTER → 2017-01-30 | Outpatient (CLI) | payer MEDICARE ==
[~2017-01-30] MED LIST changes: +ASPI81TA11 PO; +ESTR1TAB78 VAGINAL; +ESTR42.5V VAGINAL; +FIBE625T PO; +LEVO50TA4 PO; +OXYC1SOL5 PO; +OXYC1TAB35 PO; +PROB1TAB PO; +RIVA10 PO; +Z.0.COMMODE-3:1; +Z.0.WALKERFRONT; +ZOFR4TAB3 SL
[2017-01-30 10:53] LABS: BLOOD, URINE NEG (NEG); GLUCOSE,URINE NEG (NEG); KETONE, URINE NEG (NEG); NITRITE,URINE NEG (NEG); SQUAMOUS EPITHELIAL CELL URINE <1 /hpf (0-5); URINE COLOR LIGHT-YELLOW (YELLW/STRAW)
[2017-01-30 10:56] LABS: COMMENT (UR) CATH-CULT NOT IND; CULTURE IF INDICATED CATH CULTURE NOT IND
[2017-01-30 11:42] LABS: MEAN CELL VOLUME 85.1 FL (80.0-100.0); MEAN CORPUSCULAR HEMOGLOBIN 27.5 PG (27.0-34.0); MEAN CORPUSCULAR HGB CONC 32.3 % (32.0-36.0); PLATELET COUNT 172 TH/MM3 (150-450); RED BLOOD COUNT 4.82 MIL/MM3 (4.00-5.30); REVIEW FLAG FINAL; WHITE BLOOD COUNT 5.4 TH/MM3 (4.0-11.0)
[2017-01-30 11:53] LABS: APTT (PATIENT) 23.8 SEC (24.3-30.1); INTERNATIONAL NORMALIZED RATIO 0.9 RATIO; PROTHROMBIN TIME - PATIENT 10.3 SEC (9.8-11.6)
[2017-01-30 12:04] LABS: BICARBONATE 29.9 MEQ/L (21.0-32.0)
--- NOTE | 2017-01-30 19:35 | EKG ---
Date Performed: 01/30/2017 Time Performed: 11:08:38 PTAGE: 71 years EKG: SINUS BRADYCARDIA INCOMPLETE RIGHT BUNDLE BRANCH BLOCK VOLTAGE CRITERIA FOR LVH Compared to prior tracing no significant change ABNORMAL ECG PREVIOUS TRACING : 05/08/2015 15.53 DOCTOR: Armond Tucker Interpretating Date/Time 01/30/2017 19:32:49
== END ==
LOC: CPRE 10:15
PROVIDERS: ATTEND Orthopaedic Surgery
DX: Z01.812 Encounter for preprocedural laboratory examination (principal); Z01.810 Encounter for preprocedural cardiovascular examination; M17.11 Unilateral primary osteoarthritis, right knee; I10 Essential (primary) hypertension; M79.609 Pain in unspecified limb; I45.19 Other right bundle-branch block
CPT/HCPCS: 36415; 80048; 81001; 85027; 85610; 85730; 93005